=== PATIENT | female | born 1950 | race Caucasian/White ===

== ENCOUNTER 2017-10-21 11:36 | Day surgery (SDC) | payer SELFPAY ==
[~2017-10-21] VITALS: Ht 149.9 cm; Wt 57.5 kg
[~2017-10-21 11:36] MED LIST: (None)20 M1 PO; ACET325 PO; ALBU3IS INH; ALBU90OI INH; ASPI325 PO; ASPI81CH PO; AZIT250 PO; Duoneb 2.5-0.5 M3 ML IH; Esgic Tablet1 EACH PO; FLUSAL1005 INH; FLUT1DIS5 INH; INSLIS75I; IPRAIS NEB; LEVFLO500 PO; LEVO750 PO; LISI5 PO; LOPE2C PO; Lopressor 25 mg25 MG PO; METO25 PO; PRED10 PO; THYROID; Tylenol325 MG PO; UNKNOWN BP MED; Ventolin Soln3 ML INH; Ventolin5 MG/1 ML INH; Zofran Odt4 MG SL; Zofran8 MG PO
== END 2017-10-21 14:10 | disposition home or self-care (01) ==
LOC: ORSCSDS 11:36
PROVIDERS: Internal Medicine Gastroenterology
PROC: 0DBM8ZX Excision of Descending Colon, Via Natural or Artificial Opening Endoscopic, Diagnostic (ICD-10-PCS; principal; 2017-10-21 13:00)
PROC: 0DBH8ZX Excision of Cecum, Via Natural or Artificial Opening Endoscopic, Diagnostic (ICD-10-PCS; principal; 2017-10-21 13:00)
PROC: 0DBK8ZX Excision of Ascending Colon, Via Natural or Artificial Opening Endoscopic, Diagnostic (ICD-10-PCS; principal; 2017-10-21 13:00)
DX: K92.1 Melena (principal); D12.0 Benign neoplasm of cecum; D12.2 Benign neoplasm of ascending colon; D12.4 Benign neoplasm of descending colon; K64.8 Other hemorrhoids; Z80.0 Family history of malignant neoplasm of digestive organs; J44.9 Chronic obstructive pulmonary disease, unspecified; I10 Essential (primary) hypertension; I25.2 Old myocardial infarction; F17.210 Nicotine dependence, cigarettes, uncomplicated; Z79.82 Long term (current) use of aspirin; Z79.899 Other long term (current) drug therapy
CPT/HCPCS: 88305; J2250; J7120